=== PATIENT | female | born 2005 | race Caucasian/White ===

== ENCOUNTER 2024-06-03 01:06 | Outpatient (CLI) | payer BC, SELFPAY | END 2024-06-03 01:07 | disposition home or self-care (01) | LOC: AMB 06-05 13:14 | PROVIDERS: Visit Provider Student in an Organized Health Care Education/Training Program | DX: F10.129 Alcohol abuse with intoxication, unspecified (principal) | CPT/HCPCS: A0998 ==

== ENCOUNTER 2024-06-03 01:32 | Emergency (ER) | payer BC, SELFPAY ==
[2024-06-03 01:38] VITALS: BP 101/70; PULSE 87; RESP 16; TEMP 36.3; O2SAT 99; BMI 21.5
[2024-06-03] MEDS: ONDANSETRON ODT 4 MG TAB PO (02:22)
--- NOTE | 2024-06-03 02:51 | ED_ITS ---
HPI - General Adult General Chief complaint: Alcohol/Intoxication Stated complaint: ETOH Time Seen by Provider: 06/03/24 02:11 Source: patient Mode of arrival: ambulatory Limitations: no limitations History of Present Illness HPI narrative: 19-year-old female presents to the emergency department for evaluation of nausea, fatigue and feeling unwell after consuming 6 large alcoholic beverages. No injury or trauma. No fever or recent illness. No vomiting. No bloody stools, no severe abdominal pain. Did not try any interventions prior to coming to ED. Is accompanied by a male dielectric press operator, seem supportive and not intoxicated. Patient did not try any interventions prior to coming to ED. Past medical history notable for anxiety and depression. Home meds are duloxetine and Ritalin. No history of seizure disorder. No allergies. ROS otherwise negative times 12 systems except the intoxication as described above. Related Data Home Medications ?Medication ?Instructions ?Recorded ?Confirmed methylphenidate HCl 5 mg tablet 5 mg PO DAILY 06/03/24 06/03/24 (Ritalin) Allergies Allergy/AdvReac Type Severity Reaction Status Date / Time No Known Drug Allergies Allergy Verified 06/03/24 01:41 Exam Const: Vital Signs, click to edit/add: Vital Signs - 24 hr 06/03/24 01:38 Temperature 97.4 F L Pulse Rate [Left P ulse Oximeter] 87 Respiratory Rate 16 Blood Pressure [Ri ght Upper Arm] 101/70 Pulse Oximetry 99 Oxygen Delivery Me thod Room Air Documenting provider has reviewed patient's vital signs: yes Common normals: no apparent distress and alert General appearance: cooperative and comfortable HENMT: Common normals: normocephalic, moist oral mucous membranes and oropharynx normal Head and scalp: normocephalic Eye: Common normals: conjunctivae normal General eye: normal appearance of both eyes Conjunctiva: conjunctiva(e) normal Resp: Common normals: normal respiratory effort and no use of accessory muscles Effort & inspection: able to speak in complete sentences Cardio: Common normals: regular rate, regular rhythm, S1 normal heart sound and S2 normal heart sound Rate: regular rate Rhythm: regular rhythm Heart sounds: S1 normal and S2 normal GI: Common normals: Normal to inspection, nondistended, normoactive bowel sounds present, soft to palpation, non-tender, no hepatosplenomegaly and no masses Palpation: soft and no hepatosplenomegaly Neuro: Sensorium/orientation: alert Speech: speech normal Motor exam: strength 5/5 throughout, no tremor noted and no movement abnormalities noted Psych: Attitude: engaged Activity/motor behavior: appropriate eye contact Thought content: normal thought content Insight: insight good Judgement: judgment good Skin: Common normals: no rashes or lesions noted General skin exam: no rashes or lesions noted Course Course ED Course: 19-year-old female with mild alcohol intoxication. Protecting airway well, normal speech and movement. Offered Zofran since it has been at least 2-1/2 hours since her last drink. She accepts the offer for this. Counseled that unfortunately her symptoms will resolve only with time. Expect headache, nausea and fatigue. Okay to use ibuprofen 600 mg every 6 hours as needed to help with symptoms. Drink lots of water, eat salty foods today. Alarm symptoms reviewed that would warrant ED presentation. Written instructions provided including information of how to access alcohol resources if needed. Vital Signs Vital signs: Initial Vital Signs Temperature 97.4 F L 06/03/24 01:38 Temperature Source Temporal Artery Scan 06/03/24 01:38 Pulse Rate 87 06/03/24 01:38 Pulse Rhythm Regular 06/03/24 01:38 Respiratory Rate 16 06/03/24 01:38 Blood Pressure 101/70 06/03/24 01:38 Blood Pressure Mean 80 06/03/24 01:38 Blood Pressure Position Sitting 06/03/24 01:38 Pulse Oximetry 99 06/03/24 01:38 Oxygen Delivery Method Room Air 06/03/24 01:38 Vital Signs Temperature 97.4 F L 06/03/24 01:38 Pulse Rate 87 06/03/24 01:38 Respiratory Rate 16 06/03/24 01:38 Blood Pressure 101/70 06/03/24 01:38 Pulse Oximetry 99 06/03/24 01:38 Oxygen Delivery Method Room Air 06/03/24 01:38 Temperature 97.4 F L 06/03/24 01:38 Pulse Rate 87 06/03/24 01:38 Respiratory Rate 16 06/03/24 01:38 Blood Pressure 101/70 06/03/24 01:38 Pulse Oximetry 99 06/03/24 01:38 Oxygen Delivery Method Room Air 06/03/24 01:38 Medications Administered Medications: Discontinued Medications Generic Name Dose Route Start Last Admin Trade Name Freq PRN Reason Stop Dose Admin Ondansetron HCl 4 mg 06/03/24 02:15 06/03/24 02:22 Ondansetron Odt 4 Mg Tab PO 06/03/24 02:16 4 mg ONCE ONE Administration Discharge Plan Discharge Clinical Impression: Alcoholic intoxication Patient Disposition: Home w/ Parent or Adult Condition: Stable Instructions: Alcohol Intoxication (DC) Additional Instructions: As we discussed, your symptoms should pass without any intervention needed. Expect headache, nausea, dizziness and fatigue. It is okay to use ibuprofen 600 mg every 6 hours as needed to help mitigate symptoms. Most symptoms improve in about 24 hours. Drink lots of fluid and eat salty foods today to help speed the recovery process. In the future, drinking more than 2 alcoholic beverages in a sitting is likely to cause undesirable side effects in women. If you have a problem regulating your alcohol intake, I recommend that you reach out to [facility] social sciences research scientist. Your given an anti nausea medicine here in the ED that may lessen your symptoms somewhat but the only cure for this is time and cessation of alcohol. Activity Level: No Restrictions Discharge Diet: Regular Prescriptions: No Action methylphenidate HCl [Ritalin] 5 mg tablet 5 mg PO DAILY Stand Alone Forms: GTI Info Instructions
== END 2024-06-03 02:24 | disposition home or self-care (01) ==
LOC: ED 02:23
PROVIDERS: Emergency Provider Family Medicine
DX: F10.129 Alcohol abuse with intoxication, unspecified (principal)
CPT/HCPCS: 99283; A9270